=== PATIENT | female | born 1930 | race Caucasian/White ===

== ENCOUNTER → 2016-11-03 | Outpatient (CLI) | payer MEDICARE ==
[~2016-11-03] MED LIST: ASPIRIN 81M81 MG/TA2 PO; CALCIUM WITH VI1 TAB PO; KLOR-CON 1010 MEQ PO; MULTIPLE VITAMI1 CAP PO; TYLENOL EXTRA500 M1 PO; TYLENOL PM EXT240 ML PO; ZESTORETIC 12.51 TAB PO
== END ==
LOC: COL.VAS 12:16
DX: I08.0 Rheumatic disorders of both mitral and aortic valves (principal)

== ENCOUNTER → 2016-11-06 | Outpatient (CLI) | payer MEDICARE | LOC: MC.RAD 13:04 | DX: Z12.31 Encounter for screening mammogram for malignant neoplasm of breast (principal); Z98.890 Other specified postprocedural states ==

== ENCOUNTER → 2016-12-23 | Outpatient (CLI) | payer MEDICARE | LOC: MHCPAIN 13:18 | DX: G89.29 Other chronic pain (principal); M47.817 Spondylosis without myelopathy or radiculopathy, lumbosacral region; M54.16 Radiculopathy, lumbar region | CPT/HCPCS: G0463 ==

== ENCOUNTER → 2018-03-16 | Outpatient (CLI) | payer MEDICARE | LOC: MC.RAD 13:43 | DX: Z12.31 Encounter for screening mammogram for malignant neoplasm of breast (principal) ==

== ENCOUNTER 2018-04-14 13:35 | Outpatient (CLI) | payer MEDICARE ==
[~2018-04-14] VITALS: Ht 162.6 cm; Wt 80.0 kg
[~2018-04-14 13:35] MED LIST changes: -TYLENOL PM EXT240 ML PO; +TYLENOL PM EXTR1 TA1 PO
[2018-04-14] MEDS ORDERED: COZAAR 25MG25 MG/TAB PO (14:03)
[2018-04-14] MEDS ORDERED: LASIX 20MG TABL20 MG PO (14:04)
[2018-04-14] MEDS ORDERED: LUTEIN20 M1 PO (14:04)
[2018-04-14] MEDS ORDERED: ASPIRIN 81M81 MG/TA2 PO (14:04)
[2018-04-14] MEDS ORDERED: PROBIOTIC FORMU1 CAP PO (14:05)
[2018-04-14] MEDS ORDERED: VESICARE10 MG PO (14:07)
[2018-04-14 14:09] VITALS: BP 131/61; PULSE 79; TEMP 98.2
== END 2018-04-14 15:35 | disposition home or self-care (01) ==
LOC: EUO 13:35
DX: M81.0 Age-related osteoporosis without current pathological fracture (principal)
CPT/HCPCS: J3489